=== PATIENT | female | born 1965 ===

== ENCOUNTER 2017-07-18 10:24 | Emergency (ER) | payer MEDICAID, OTHER ==
[2017-07-18 10:33] VITALS: BP 114/65; RESP 16; TEMP 98.2; O2SAT 99; BMI 36.3
--- NOTE | 2017-07-18 12:12 | ED PDOC ---
HPI: Chest Pain Time Seen by Provider: 07/18/17 11:04 Chief Complaint (Nursing): Chest Pain Chief Complaint (Provider): Chest Pain History Per: Patient History/Exam Limitations: no limitations Onset/Duration Of Symptoms: Days (x 1) Current Symptoms Are (Timing): Still Present Severity: Severe Associated Symptoms: Nausea Exacerbating Factors: Movement Additional Complaint(s): Carli is a 51 y/o female with a history of thyroid issues, who presents to the ED complaining of chest pain that started last night, associated with headache, nausea, and back pain. Patient states that the chest pain is located in the center of the chest, radiating through the right breast, and gets worse when she moves. She has no other medical complaints. PMD: Dr. David Arteaga Past Medical History Reviewed: Historical Data, Nursing Documentation, Vital Signs Vital Signs: Last Vital Signs Temp 98.2 F 07/18/17 10:32 Pulse 70 07/18/17 14:09 Resp 16 07/18/17 10:32 BP 114/65 07/18/17 10:32 Pulse Ox 99 07/18/17 14:09 - Medical History Other PMH: unspecified thyroid problems - Family History Family History: States: Unknown Family Hx - Allergies Allergies/Adverse Reactions: Allergies Allergy/AdvReac Type Severity Reaction Status Date / Time No Known Allergies Allergy Verified 03/20/17 11:30 Review of Systems ROS Statement: Except As Marked, All Systems Reviewed And Found Negative Cardiovascular: Positive for: Chest Pain (central radiating to right breast) Gastrointestinal: Positive for: Nausea Musculoskeletal: Positive for: Back Pain (worse with movement) Physical Exam - Reviewed Nursing Documentation Reviewed: Yes Vital Signs Reviewed: Yes - Physical Exam Appears: Positive for: Non-toxic, No Acute Distress Head Exam: Positive for: ATRAUMATIC, NORMAL INSPECTION, NORMOCEPHALIC Skin: Positive for: Normal Color, Warm, Dry Neck: Positive for: Normal, Supple Cardiovascular/Chest: Positive for: Regular Rate, Rhythm Respiratory: Positive for: Normal Breath Sounds. Negative for: Wheezing, Respiratory Distress Gastrointestinal/Abdominal: Positive for: Normal Exam, Soft. Negative for: Tenderness Neurologic/Psych: Positive for: Alert, Oriented - Laboratory Results Result Diagrams: 07/18/17 12:05 07/18/17 12:05 - ECG ECG: Positive for: Interpreted By Me, Viewed By Me ECG Rhythm: Positive for: Sinus Rhythm. Negative for: ST/T Changes Rate: 70 (bpm) O2 Sat by Pulse Oximetry: 99 (RA) Pulse Ox Interpretation: Normal Medical Decision Making Medical Decision Making: Time: 12:03 Initial Impression: Possible musculoskeletal pain, GERD less likely: cardiac issue Initial Plan: --CMP --Troponin I --CBC --XR Chest 2 Views Time: 1246 Chest x-ray FINDINGS: LUNGS: No active pulmonary disease. PLEURA: No significant pleural effusion identified. No pneumothorax apparent. CARDIOVASCULAR: Normal. OSSEOUS STRUCTURES: No significant abnormalities. VISUALIZED UPPER ABDOMEN: Normal. OTHER FINDINGS: None. IMPRESSION: No active disease. Time: 1355 Toradol 30 mg IV Time: 14:35 Second troponin ordered. Time: 15:00 Patient signed out to Dr. Tamez pending second troponin. Scribe Attestation: Documented by Reagan Kelly and Fabienne Sherwood, acting as a scribe for Dr. Ranulfo Gooden. Provider Scribe Attestation: All medical record entries made by the Scribe were at my direction and personally dictated by me. I have reviewed the chart and agree that the record accurately reflects my personal performance of the history, physical exam, medical decision making, and the department course for this patient. I have also personally directed, reviewed, and agree with the discharge instructions and disposition. Disposition - Clinical Impression Clinical Impression: Chest pain - Patient ED Disposition Is Patient to be Admitted: Transfer of Care - Disposition Referrals: David Arteaga MD [Primary Care Provider] - Disposition Time: 15:00 Condition: FAIR Forms: [employer] (Occitan) Patient Signed Over To: Zachariah Ayala
[2017-07-18 12:17] VITALS: PULSE 70
[2017-07-18 12:45] LABS: ALB/GLOB RATIO 1.2 (1.0-2.1); ALKALINE PHOSPHATASE 125 U/L (38-126); ALT/SGPT 33 U/L (9-52); AST/SGOT 35 U/L (14-36); BILIRUBIN,TOTAL 0.7 mg/dl (0.2-1.3); BLOOD UREA NITROGEN 15 mg/dl (7-17); CALCIUM 9.2 mg/dL (8.4-10.2); CARBON DIOXIDE 21 mmol/L (22-30); CHLORIDE 106 mmol/L (98-107); GFR AFRICAN-AMERICAN > 60; GLUCOSE,RANDOM 70 mg/dL (65-105); SODIUM 142 mmol/l (132-148); TOTAL PROTEIN 8.5 G/DL (6.3-8.2)
--- NOTE | 2017-07-18 12:47 | RAD ---
HISTORY: Chest pain COMPARISON: No prior. TECHNIQUE: Chest PA and lateral FINDINGS: LUNGS: No active pulmonary disease. PLEURA: No significant pleural effusion identified. No pneumothorax apparent. CARDIOVASCULAR: Normal. OSSEOUS STRUCTURES: No significant abnormalities. VISUALIZED UPPER ABDOMEN: Normal. OTHER FINDINGS: None. IMPRESSION: No active disease. Please note: No preliminary report/ innterpretation of this examination provided by emergency department personnel.
[2017-07-18 12:48] LABS: BASO # 0.1 K/uL (0.0-0.2); BASO % 0.8 % (0.0-2.0); EOS # 0.1 K/uL (0.0-0.7); HEMATOCRIT 35.2 % (34.0-47.0); LYMPH # 3.9 K/uL (1.0-4.3); LYMPH % 37.6 % (20.0-40.0); MEAN CELL VOLUME 85.3 fl (81.0-99.0); MEAN CORPUSCULAR HEMOGLOBIN 27.7 pg (27.0-31.0); MEAN CORPUSCULAR HGB CONC 32.5 g/dL (33.0-37.0); MEAN PLATELET VOLUME 10.6 fl (7.2-11.7); MONO # 0.5 K/uL (0.0-0.8); MONO % 4.8 % (0.0-10.0); NEUT # 5.8 K/uL (1.8-7.0); NEUT % 55.8 % (50.0-75.0); NRBC % 0.1 % (0.0-0.0); RED CELL DISTRIBUTION WIDTH 15.8 % (11.5-14.5); WHITE BLOOD COUNT 10.5 K/uL (4.8-10.8)
[2017-07-18 13:12] LABS: POTASSIUM 4.1 MMOL/L (3.6-5.0)
--- NOTE | 2017-07-18 15:05 | ED PDOC ---
- Laboratory Results Result Diagrams: 07/18/17 12:05 07/18/17 12:05 - ECG O2 Sat by Pulse Oximetry: 99 (RA) Medical Decision Making Medical Decision Makin:00 Patient transferred over to me by Dr. Gooden pending repeat troponin. 15:59 Repeat troponin negative. No chest pain on reassessment, patient is stable for discharge home. Scribe Attestation: Documented by Fabienne Sherwood, acting as a scribe for Zachariah Ayala MD. Provider Scribe Attestation: All medical record entries made by the Scribe were at my direction and personally dictated by me. I have reviewed the chart and agree that the record accurately reflects my personal performance of the history, physical exam, medical decision making, and the department course for this patient. I have also personally directed, reviewed, and agree with the discharge instructions and disposition. Disposition - Clinical Impression Clinical Impression: Chest pain - POA Present On Arrival: None - Disposition Referrals: David Arteaga MD [Primary Care Provider] - Disposition: Routine/Home Disposition Time: 15:59 Condition: GOOD Additional Instructions: Return for worsening. Follow up with your PCP in 2 days. Instructions: Chest Pain (ED) Print Language: INDONESIAN
== END 2017-07-18 16:31 | disposition home or self-care (01) ==
LOC: H.ER 10:24 → SUPCPDRO 10:24 → H.ER 16:31
DX: R07.89 Other chest pain (principal)

== ENCOUNTER 2018-09-08 12:44 | Emergency (ER) | payer OTHER ==
[2018-09-08] MEDS ORDERED: Naproxen 500 MG TAB PO STA (13:43)
--- NOTE | 2018-09-08 13:53 | ED PDOC ---
HPI: CCC, URI, Sore Throat Time Seen by Provider: 09/08/18 13:14 Chief Complaint (Nursing): ENT Problem Chief Complaint (Provider): ear pain, breast pain History Per: Creative Strategist ([id number]) History/Exam Limitations: no limitations Onset/Duration Of Symptoms: Days (x3) Additional Complaint(s): Carli Godfrey, a 52 year old female with past medical history of thyroid condition and breast cyst, presents to the ED with right ear pain associated with drainage and pain to touch onset x3 days. Patient states that her ear pain radiates to her scalp, face and neck. Patient also reports right breast pain x2 months. She reports being referred to a breast surgeon for further evaluation of a cyst found on her mammography, which she has had for a while but notes it recently became painful. Patient is scheduled to follow up with the surgeon in the beginning of October but cannot recall the name of the surgeon. She denies redness to breast, nipple drainage or discharge, fever, chills, nausea, vomiting , shortness of breath, cough, or throat pain. No further medical complaints. PMD: Jory [facility] Past Medical History Reviewed: Historical Data, Nursing Documentation, Vital Signs Vital Signs: Last Vital Signs Temp 98.2 F 09/08/18 13:13 Pulse 74 09/08/18 13:13 Resp 20 09/08/18 13:13 BP 122/83 09/08/18 13:13 Pulse Ox 100 09/08/18 13:13 - Medical History Other PMH: thyroid condition, breast cyst - Surgical History Surgical History: (x4) - Family History Family History: States: Unknown Family Hx - Living Arrangements Living Arrangements: With Family - Social History Current smoker - smoking cessation education provided: No Drugs: Denies - Home Medications Home Medications: Ambulatory Orders Medication Instructions Recorded Ciprofloxacin/Dexamethasone 4 drop AD BID #1 bottle 09/08/18 [Ciprodex Otic] RX: Naproxen 500 mg PO BID PRN #20 tab 09/08/18 - Allergies Allergies/Adverse Reactions: Allergies Allergy/AdvReac Type Severity Reaction Status Date / Time No Known Allergies Allergy Verified 09/08/18 13:11 Review of Systems ROS Statement: Except As Marked, All Systems Reviewed And Found Negative Constitutional: Positive for: Other (breast pain with no nipple discharge or drainage). Negative for: Fever, Chills ENT: Positive for: Ear Pain (right). Negative for: Throat Pain Respiratory: Negative for: Cough, Shortness of Breath Gastrointestinal: Negative for: Nausea, Vomiting Physical Exam - Reviewed Nursing Documentation Reviewed: Yes Vital Signs Reviewed: Yes - Physical Exam Comments: GENERAL APPEARANCE: Patient is awake, alert, oriented x 3, in no acute distress. Resting comfortably. SKIN: Warm, dry; (-) cyanosis. ENMT: Ear Canals: (-) cerumen impaction (+) erythema and edema of right ear canal (+)right ear pain with helix and tragus movement (-) exudate. TMs: (-) bulging (-) erythema (-)effusion, (-) perforation, (-) vesicle. Frontal / maxillary sinuses: (-) tenderness. (-) TMJ tenderness. Pharynx: Clear, uvula midline, (-) erythema (-) exudate. Airway patent: (-) stridor. NECK: Supple, FROM (-) stiffness, (-) tenderness, (-) lymphadenopathy. LUNGS: clear to auscultation bilaterally, (-) wheezing, (-) rhonchi, (-) rales. CARDIAC: RRR BREAST: (-) erythema (-) lesions or rashes, (-) palpable mass or cyst, (-) skin changes, (-) nipple discharge, (-) no lymphadenopathy. 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 ABDOMEN AND GI: Soft, (-) tenderness, (-) guarding (-) CVA tenderness. - ECG O2 Sat by Pulse Oximetry: 100 (RA) Pulse Ox Interpretation: Normal Medical Decision Making Medical Decision Making: Time: 12:50 Initial Impression: otitis externa, mastodynia Initial Plan: --Naproxen 500 mg PO --Re-evaluation 1515 On re-evaluation, patient reports improvement of symptoms. On exam, patient remains AAOx3, in no acute distress. Lungs clear to auscultation, cardiac RRR, repeat neuro exam shows no focal findings. Vitals stable. Lab/Diagnostic results d/w the patient in great detail. Diagnosis of otitis externa, mastodynia d/w the patient. Based on history, exam and diagnostic results, plan will be for outpatient follow up with PMD/surgeon. Patient instructed to follow-up with pmd / referral provided / the clinic in 1- 2 days without fail. Advised to take medication as prescribed. Return to the emergency room at any time for any new or worsening symptoms. Patient states she fully agrees with and understands discharge instructions. States that she agrees with the plan and disposition. Verbalized and repeated discharge instructions and plan. I have given the patient opportunity to ask any additional questions. -- Scribe Attestation: Documented by Janet Davis, acting as a scribe for Peggy Tran PA-C. Provider Scribe Attestation: All medical record entries made by the Scribe were at my direction and personally dictated by me. I have reviewed the chart and agree that the record accurately reflects my personal performance of the history, physical exam, medical decision making, and the department course for this patient. I have also personally directed, reviewed, and agree with the discharge instructions and disposition. Disposition - Clinical Impression Clinical Impression: Otitis externa, Breast cyst, Mastodynia of right breast - Patient ED Disposition Is Patient to be Admitted: No Counseled Patient/Family Regarding: Studies Performed, Diagnosis, Need For Followup, Rx Given - Disposition Referrals: your, surgeon [Other] Norberto High MD [Medical Doctor] - Lucas Gillis MD [Staff Provider] - Disposition: Routine/Home Disposition Time: 15:20 Condition: IMPROVED Additional Instructions: La atencin mdica de emergencia que recibi hoy se dirigi a priyanka sntomas agudos. Si le recetaron algn medicamento, llnelo y tmelo segn las indicaciones. Los sntomas pueden tardar varios liu en resolverse. Regrese al Departamento de Emergencias si priyanka sntomas empeoran, no mejoran o si tiene otros problemas. Comunquese con ulloa mdico dentro de 2 liu para adina nueva evaluacin y yuli un seguimiento o llame a geneva de los mdicos / clnicas a los que vega sido referido y que figuran en el formulario de Informacin de visita al paciente que se incluye en ulloa paquete de pipo. Lleve con usted a ulloa consulta de seguimiento toda la documentacin que recibi del pipo junto con los medicamentos que est tomando. Nuestro tratamiento no puede reemplazar la atencin mdica continua por parte de un proveedor de atencin primaria (PCP) fuera del departamento de emergencias. Prescriptions: Ciprofloxacin/Dexamethasone [Ciprodex Otic] 4 drop AD BID #1 bottle RX: Naproxen 500 mg PO BID PRN #20 tab PRN Reason: Pain, Moderate (4-7) Instructions: Outer Ear Infection, Mastalgia, Common Breast Problems Forms: [employer] (Chadian) Print Language: YORUBA - POA Present On Arrival: None
[2018-09-08] MEDS ORDERED: Naproxen 500 MG TAB PO ONE (14:44)
[2018-09-09 00:17] VITALS: BP 122/83; PULSE 74; RESP 20; TEMP 98.2; O2SAT 100; BMI 37.4
== END 2018-09-08 15:27 | disposition home or self-care (01) ==
LOC: H.ER 12:44
DX: H60.91 Unspecified otitis externa, right ear (principal); N60.01 Solitary cyst of right breast; N64.4 Mastodynia